=== PATIENT | male | born 1975 | race American Indian/Alaskan Native ===

== ENCOUNTER 2016-12-05 03:09 | Inpatient (IN) | payer MEDICAID ==
[2016-12-05 04:16] LABS: Basophils % (Auto) 0.4 % (0.0-1.8); Eosinophils % (Auto) 0.1 % (0.0-4.3); Hematocrit 48.4 % (35.5-45.6); Hemoglobin 15.8 gm/dl (11.8-15.2); Mean Corpuscular HGB Conc 33 % (32-34); Mean Corpuscular Hemoglobin 28 pg (28-32); Mean Corpuscular Volume 86 fl (84-94); Platelet Count 187 K/mm3 (140-440); Red Blood Count 5.63 M/mm3 (3.65-5.03); Red Cell Distribution Width 15.9 % (13.2-15.2)
[2016-12-05] MEDS ORDERED: DILAUDID IV ONE (04:24)
[2016-12-05] MEDS ORDERED: NACL 0.9% 1000 ML 1,000 ML IV ONE (04:24)
[2016-12-05 04:27] LABS: INR 0.98 (0.87-1.13)
--- NOTE | 2016-12-05 04:36 | Emergency Department Report ---
Blank Doc - Documentation Documentation: MSE note: 40-year-old male with a past medical history of PE/DVT status post open thoracic surgery to remove clots (2014), currently on a Eliquis times one year presents to the hospital complains of ongoing intermittent chest pain and cramps to bilateral legs times one day. This is patient's first visit. Pt typically is evaluated at evaluated at [facility]. Pt ran out of Roxicodone and fentanyl 6 days ago. Pt also reports stents in his bilateral legs and carotids (I'm assuming arterial?). MSE exam: General: No distress secondary to leg pain Respiratory exam: Clear to auscultation bilateral Cardiovascular: Normal rate and rhythm, normal heart sounds Abdomen: Soft, nondistended, and nontender, with normal bowel sounds, no rebound, or guarding Extremity: Normal inspection, no edema, generalized tenderness to palpation to entire leg down to feet. 2+ DP pulses equal bilaterally, no leg asymmetry Neurologic: Alert, oriented x3 Assessment/Plan: Chest pain appears to be chronic. Patient is compliant with Eliquis. cbc, bmp , Cardiac enzymes, d-dimer and coags ordered and pending. CXR reviewed, 20 g in AC. EKG No stemi, nsr 80 Leg pain is new onset. Normal distal pulses. Electrolytes pending. Ck pending , given hx of noncomplance and dvt , bilateral doppler ordered Dilaudid 0.5 mg and 1 L normal saline ordered. Patient's systolic pressure in the high 90s/low 100s. Additional pain medicine can be ordered if blood pressure is stable Possible chronic pain given the patient has been prescribed Roxicodone and fentanyl patch Medical medical records requested for [facility] since patient is overall a poor historian and there are no previous records here for review. Records obtained from [facility]: Patient also has HIV which patient did not mention. 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 Had a PE in 08/2014. Was hospitalized 5 months from 01/2015-07/2015 with acute on chronic hypoxemic respiratory failure and received a pulmonary artery endarterectomy at [place] after which he no longer requiring oxygen. In 02/2016 patient presented to ED with worsening shortness of breath and was found to have a new PE. Patient was noncompliant with Coumadin and switch to Eliquis. On 2015 patient presents with worsening left extremity and abdominal pain and was found to have an extensive clot above the IVC filter extending to the bilateral iliac veins. On 03/27/2016 patient underwent thrombectomy,venoplasty, and SVC stent, extending into the common femorals after which he was started on Plavix. Patient was discharged on Eliquis. Patient stopped Eliquis on 05/13/2016 for unclear reasons and then had worsening right inner thigh pain. Patient presented to the ER with worsening pain and unable to ambulate. CT abdomen and pelvis IV contrast on 06/04/2016: Bilateral vascular stents extending from the common iliac veins into the bilateral femoral veins are stable. Infrarenal IVC and stable position. Evaluation for thrombus with suboptimal due to contrast bolus. However, increased filling defects were noticed within the venous stents likely indicating progression of thrombus. Right leg Doppler study 10/28/2016: Non-occlusive chronic or recurrent DVT thrombus of the right lower femoral vein and right popliteal vein with improved clot burden (copy of records will be added to chart)
[2016-12-05] MEDS ORDERED: ZOFRAN IV ONE (04:37)
[2016-12-05 04:44] LABS: Creatine Kinase MB 3.8 ng/mL (0.0-4.0)
[2016-12-05 04:49] LABS: Anion Gap 25 mmol/L; BUN/Creatinine Ratio 18.57; Blood Urea Nitrogen 26 mg/dL (9-20); Calcium 10.5 mg/dL (8.4-10.2); Carbon Dioxide 26 mmol/L (22-30); Chloride 93.4 mmol/L (98-107); Creatine Kinase 1131 units/L (55-170); Glucose 102 mg/dL (75-100); Potassium 4.1 mmol/L (3.6-5.0); Sodium 140 mmol/L (137-145)
[2016-12-05] MEDS ORDERED: TORADOL ONE (07:19)
[2016-12-05] MEDS ORDERED: ZOFRAN ONE (07:19)
--- NOTE | 2016-12-05 08:11 | Cat Scan Report ---
CTA CHEST: INDICATION: Chest pain, shortness of breath. COMPARISON: None similar. FINDINGS: Chest CTA performed following intravenous administration of 100 cc of Omnipaque 350. Rotational MIP's also obtained. Normal heart size. No effusions. Patent central airway. Minimal hilar lymph node prominence, though not size significant. No significant axillary lymphadenopathy. No aortic aneurysm or dissection. Normal thyroid. Mild bibasilar atelectasis, right greater than left. Mild pulmonary arterial hypertension. Right lower lobe pulmonary arterial branch medially completely occluded, axial images 140-175, series 2, amongst others. No other suspicious pulmonary arterial filling defects. Nonspecific distal esophageal wall prominence/thickening, not excluded for gastroesophageal reflux and/or hiatal hernia, amongst others. Slight contrast reflux into the hepatic veins noted. No significant abnormality in the imaged upper abdomen. Sternotomy wires. CONCLUSION: 1. Right lower lobe pulmonary embolism and mild bibasilar atelectasis, as described. 2. Other findings, including pulmonary arterial hypertension and prior sternotomy. Please correlate. I phoned the above results to Dr. Bettencourt in the ER, 8 AM, 12/05/2016. Thank you for the opportunity to participate in this patient's care.
--- NOTE | 2016-12-05 08:13 | XRay Report ---
PORTABLE CHEST INDICATION: Midsternal chest pain and bilateral leg pain. History of PE. COMPARISON: None similar at this institution. FINDINGS: Portable, frontal chest radiograph demonstrates normal cardiomediastinal silhouette and slightly crowded lung markings centrally and inferiorly. No focal consolidation, pleural effusions or CHF. Sternotomy wires. EKG leads. CONCLUSION: No significant acute chest process with prior sternotomy noted, as described. Thank you for the opportunity to participate in this patient's care.
--- NOTE | 2016-12-05 08:17 | Emergency Department Report ---
HPI - General Chief Complaint: Chest Pain Time Seen by Provider: 12/05/16 04:16 - HPI HPI: CHEST PAIN, RIGHT SIDED, X 1 DAY. PATIENT WITH H/O PE, DVT, GETS MOST OF HIS CARE AT [facility], HE ASKED TO BE TAKEN THERE BUT EMS BROUGHT HIM HERE BECAUSE WE WERE THE CLOSEST HOS[facility] AND HE WAS HAVING CHEST PAIN. PATIENT STATES PAIN IS 10/10, RIGHT SIDED, WITH SOB. PATIENT DENIES ANY FEVER, CHILLS. PAIN DOESN'T RADIATE. PATIENT DENIES ANY ALLEVIATING OR EXACERBATING FACTORS. ED Past Medical Hx - Past Medical History Previous Medical History?: Yes Additional medical history: PE - Surgical History Past Surgical History?: Yes Additional Surgical History: Blood clots removed. - Family History Family history: hypertension - Social History Smoking Status: Former Smoker Substance Use Type: None - Medications Home Medications: Home Medications Medication Instructions Recorded Confirmed Last Taken Type Apixaban [Eliquis] 5 mg PO BID 12/05/16 12/05/16 Unknown History Furosemide [Lasix TAB] 10 mg PO QDAY 12/05/16 12/05/16 Unknown History Oxycodone HCl [Roxicodone TAB] 15 mg PO Q6H PRN 12/05/16 12/05/16 Unknown History Torsemide [Demadex] 10 mg PO QDAY 12/05/16 12/05/16 Unknown History ED Review of Systems ROS: Stated complaint: CHEST/LEG PAIN Other details as noted in HPI Comment: All other systems reviewed and negative Cardiovascular: chest pain Musculoskeletal: myalgia Physical Exam - Physical Exam Vital Signs: Vital Signs 12/05/16 12/05/16 12/05/16 03:16 03:29 03:30 Temperature 97.9 F Pulse Rate 86 88 Respiratory 15 15 13 Rate Blood Pressure 102/55 Blood Pressure 90/44 [Right] O2 Sat by Pulse 100 100 97 Oximetry 12/05/16 12/05/16 12/05/16 04:00 04:30 05:00 Temperature Pulse Rate 83 76 72 Respiratory 15 12 13 Rate Blood Pressure 99/67 93/64 107/70 Blood Pressure [Right] O2 Sat by Pulse 100 Oximetry 12/05/16 12/05/16 12/05/16 05:09 05:30 06:00 Temperature Pulse Rate 78 72 Respiratory 14 12 Rate Blood Pressure 110/66 90/58 Blood Pressure [Right] O2 Sat by Pulse 99 98 Oximetry 12/05/16 12/05/16 06:30 07:00 Temperature Pulse Rate 81 81 Respiratory 13 Rate Blood Pressure 109/72 113/70 Blood Pressure [Right] O2 Sat by Pulse 99 100 Oximetry Physical Exam: gen: alert and oriented x3, Tearful heent: perrla, eomi cv: rrr, nl s1, s2 lungs: cta bila abd: s,nt,nd, pos bs ext: no edema gu: pt refused neuro: no deficits psych: ANXIOUS skin: normal turgor ED Course Vital Signs 12/05/16 12/05/16 12/05/16 03:16 03:29 03:30 Temperature 97.9 F Pulse Rate 86 88 Respiratory 15 15 13 Rate Blood Pressure 102/55 Blood Pressure 90/44 [Right] O2 Sat by Pulse 100 100 97 Oximetry 12/05/16 12/05/16 12/05/16 04:00 04:30 05:00 Temperature Pulse Rate 83 76 72 Respiratory 15 12 13 Rate Blood Pressure 99/67 93/64 107/70 Blood Pressure [Right] O2 Sat by Pulse 100 Oximetry 12/05/16 12/05/16 12/05/16 05:09 05:30 06:00 Temperature Pulse Rate 78 72 Respiratory 14 12 Rate Blood Pressure 110/66 90/58 Blood Pressure [Right] O2 Sat by Pulse 99 98 Oximetry 12/05/16 12/05/16 06:30 07:00 Temperature Pulse Rate 81 81 Respiratory 13 Rate Blood Pressure 109/72 113/70 Blood Pressure [Right] O2 Sat by Pulse 99 100 Oximetry ED Medical Decision Making - Lab Data Result diagrams: 12/06/16 05:34 12/06/16 05:34 Critical care attestation.: If time is entered above; I have spent that time in minutes in the direct care of this critically ill patient, excluding procedure time. ED Disposition Clinical Impression: Pulmonary embolus, right Disposition: [id number] OP ADMIT IP TO THIS HOSP Is pt being admited?: Yes Does the pt Need Aspirin: No Condition: Good
--- NOTE | 2016-12-05 08:30 | Admit Criteria Form ---
Admission Criteria Documentation: PULMONARY EMBOLISM Clinical Indications for Admission to Inpatient Care (Place 'X' for any and all applicable criteria): Admission is indicated for 1 or more of the following(1)(2)(3)(4)(5)(6)(7) [ ]I. Hypoxemia [X ]II. Vital sign abnormality (8) indicated by ALL of the following: [ X]a) Vital sign findings not as expected for chronic patient condition or baseline (eg, intentionally low, blood pressure in heart failure) [X ]b) Vital sign abnormality as indicated by 1 or more of the following [ ]l) Tachycardia [X ]ll) Hypotension [ ]lll) Orthostatic vital sign changes [ ]III. History of cancer [ ]IV. History of chronic cardiopulmonary disease (eg. CHF, coronary artery disease, COPD, cor pulmonale) [ ]V. Cardiac arrhythmias of intermediate concern [ ]. Right ventricular dysfunction (eg, by echocardiogram) [ ]VII. Positive cardiac biomarker (eg, troponin T or I > 0.1 ng/mL (mcg/L), highly sensitive troponin I assay greater than 0.014 ng/mL (mcg/L), BNP or NT proBNP > assay threshold)(8 )(10)(11) [ ]VIII. Need for IV narcotics (eg, to treat dyspnea) 1 or more of following: [ ]a) Bleeding before anticoagulation [ ]b) Recent surgery (eg, within 3 months) that increases risk of catastrophic bleeding (eg, spinal surgery, intracranial surgery, cardiovascular surgery) [ ]c) Recent GI bleeding (eg, within 3 months) or known increased risk of GI bleed (eg,esophageal varices, current ulcer) [ ]d) Recent (eg, within 3 months) ischemic stroke [ ]e) History of intracranial bleeding (eg, hemorrhagic stroke) [ ]f) History of active bleeding when anticoagulated [ ]g) Active substance abuse [ ]h) Other risk factor thought to place patient at high risk such that ability to rapidly reverse reversal agent) [ ]X. Documented extensive thrombosis (eg, clot in vena cava or above iliofemoral bifurcation) [ ]Xl. Thrombolysis (eg, catheter-directed) or pharmacomechanical thrombectomy needed[A][B](8) [ ]XIl. Vena cava filter placement needed (eg, unable to anticoagulate)[C](8) [ ]Xlll. with delivery planned (eg, 37 or more weeks' gestation)(14 ) [ ]XlV. Limb-threatening thrombosis (eg, phlegmasia cerula dolens) [ ]XV. Embolism while on anti-coagulation [ ]XVl. Contraindication to outpatient use of medication with rapid anticoagulation effect as indicated by ALL of the following: [ ] a) Contraindication to use of fhs-rmkmskmvf-shsytc heparin[E][F ] indicated by 1 or more of the following(16): [ ] i) Documented current or history of heparin-induced thrombocytopenia(15) [ ] ii) Severe thrombocytopenia (eg, platelet count less than 50 ,000/mm3 (50 x109/L)) [ ] iii) Allergy to heparin, lje-icaggrfbb-mgjwuh heparin, or product component [ ] iv) Renal failure (creatinine clearance less than 30 mL/min/ 1.73m2 (0.50 mL/sec/1.73m2) or on dialysis) [ ] v) Need for neuraxial anesthesia or spinal puncture anticipated [ ] vi) Inability to manage self-injection (eg. By patient, caregiver, or visiting nurse) [ ] b) Contraindication to use of fondaparinux indicated by 1 or more of the following: [ ] i) Documented current or history of heparin-induced thrombocytopenia (15) [ ] ii) Severe thrombocytopenia (eg, platelet count less than 50 ,000/mm3 (50 x109/L)) [ ] iii) Allergy to fondaparinux, related drugs, or product components [ ] iv) Renal failure (creatinine clearance less than 30 mL/min/ 1.73m2 (0.50 mL/sec/1.73m2) or on dialysis) [ ] v) [ ] vi) Liver disease with coagulopathy (eg, elevated INR due to liver disease) [ ] vii) Mechanical heart valve [ ] viii) Need for neuraxial anesthesia or spinal puncture anticipated [ ] xi) Inability to manage self-injection (eg, by patient, caregiver, or visiting nurse) [ ] c) Contraindication to use of an oral direct thrombin inhibitor (eg, dabigatran) or an oral coagulation factor Xa inhibitor (eg, rivaroxaban, apixaban)[E][F] indicated by 1 or more of the following(17)(18): [ ] i) Severe thrombocytopenia (eg, platelet count less than 50, 000/mm3 (50 x109/L)) [ ] ii) Allergy to medication or product components x109/L)) [ ] iii) Renal failure (creatinine clearance less than 30 mL/min /1.73m2 (0.50 mL/sec/1.73m2) or on dialysis) [ ] iv) [ ] v) Liver disease with coagulopathy (eg, elevated INR due to liver disease) [ ] vi) Mechanical heart valve [ ] vii) Need for neuraxial anesthesia or spinal puncture anticipated [ ]XVll. Inpatient admission required rather than observation care (Also use Pulmonary Embolism: Observation Care guideline as appropriate) because of ANY ONE of the following: [ ] a) Significant autoimmune (thrombocytopenia) or coagulopathic reaction occurs in response to anticoagulation [ ] b) Respiratory symptoms (eg, tachypnea, dyspnea) that are severe or persistent [ ] c) Other condition, treatment, or monitoring requiring inpatient admission The original [employer] content created by [employer] has been revised. The portions of the content which have been revised are identified through the use of italic text or in bold, and [facility] has neither reviewed nor approved the modified material. All other unmodified content is copyright [employer]. Please see references footnoted in the original [email or web address] edition 2017 Admission Criteria Met: Yes
--- NOTE | 2016-12-05 08:55 | History and Physical Report ---
History of Present Illness Date of examination: 12/05/16 Date of admission: 12/05/2016 Chief complaint: Bilateral leg pain History of present illness: The patient is a 40 years old -Beninese male with history of multiple PE/ DVT status post open thoracic surgery to remove clots (2014), currently on a Eliquis times one year presents to the hospital complains of ongoing intermittent chest pain and cramps to bilateral legs times one day . The pain began morning at approx 4:00 am while the patient was walking to the bathroom. The pain was described as aching and had a gradual onset. The patient had difficulty sleeping because of the pain. The pain continued to gradually increase in severity to an 10/10 today. The pain was exacerbated with walking or standing and was not significantly relieved with Percocet that the patient had by prescription. Patient also complain intermittent right side chest pain since yesterday. The right-sided pain is located midway down to his ribcage, below the axilla. This pain is sharp, about 9/10 in severity, and worsens with movement and cough. Pressing on the chest does not recreate the pain. The patient reports some chills and mild SOB, but denies fever, N/V, cough , chest pain, abdominal pain or recent trauma to the legs. Past History Past Medical History: DVT, HIV/AIDS, pulmonary embolism Past Surgical History: Other (Bilateral iliac IVC filter placement and open thoracic surgery to remove clots ) Social history: single, Lives alone. denies: smoking, alcohol abuse Family history: CAD, hypertension Medications and Allergies Allergies Allergy/AdvReac Type Severity Reaction Status Date / Time ibuprofen [From Motrin] Allergy Hives Verified 12/05/16 03:34 Home Medications Medication Instructions Recorded Confirmed Last Taken Type Apixaban [Eliquis] 5 mg PO BID 12/05/16 12/05/16 Unknown History Furosemide [Lasix] 10 mg PO QDAY 12/05/16 12/05/16 Unknown History Oxycodone HCl [Roxicodone TAB] 15 mg PO Q6H PRN 12/05/16 12/05/16 Unknown History Torsemide [Demadex] 10 mg PO QDAY 12/05/16 12/05/16 Unknown History Active Meds: Active Medications Acetaminophen (Tylenol) 650 mg PO Q4H PRN PRN Reason: Pain MILD(1-3)/Fever >100.5/GROSSMAN Apixaban (Eliquis) 10 mg PO Q12HR SAPNA PRN Reason: Protocol Bisacodyl (Dulcolax) 10 mg MD QDAY PRN PRN Reason: Constipation unrelieved by MOM Morphine Sulfate (Morphine) 1 mg IV Q4H PRN PRN Reason: Pain, Moderate (4-6) Ondansetron HCl (Zofran) 4 mg IM Q4H PRN PRN Reason: Nausea And Vomiting Review of Systems Constitutional: no weight gain, no fever, no chills Ears, nose, mouth and throat: no ear discharge, no tinnitis, no decreased hearing, no nose pain Cardiovascular: no palpitations, no rapid/irregular heart beat, no edema Respiratory: no cough, no cough with sputum, no excessive sputum Gastrointestinal: no abdominal pain, no nausea, no vomiting, no diarrhea Genitourinary Male: no hematuria, no flank pain, no discharge, no urinary frequency, no urinary hesitancy Rectal: no pain, no incontinence, no bleeding Musculoskeletal: no neck stiffness, no neck pain, no shooting arm pain, no redness of joints Integumentary: no rash, no pruritis, no redness, no sores, no wounds, no jaundice Neurological: no transient paralysis, no paralysis, no weakness, no numbness, no tingling Psychiatric: no memory loss, no change in sleep habits, no sleep disturbances, no insomnia, no hypersomnia Endocrine: no cold intolerance, no heat intolerance, no polyphagia, no excessive thirst, no polydipsia, no polyuria Hematologic/Lymphatic: no easy bruising, no easy bleeding Allergic/Immunologic: no urticaria, no allergic rhinitis Exam - Constitutional Vitals: Temp Pulse Resp BP Pulse Ox 97.9 F 81 13 113/70 100 12/05/16 03:16 12/05/16 07:00 12/05/16 07:00 12/05/16 07:00 12/05/16 07:00 General appearance: Present: no acute distress - EENT Eyes: Present: PERRL ENT: hearing intact - Neck Neck: Present: supple - Respiratory Respiratory effort: normal Respiratory: bilateral: CTA - Cardiovascular Heart rate: 81 Rhythm: regular Heart Sounds: Present: S1 & S2 - Extremities Extremities: no ischemia Peripheral Pulses: within normal limits - Abdominal General gastrointestinal: Present: soft, non-tender Male genitourinary: Present: deferred - Rectal Rectal Exam: deferred - Integumentary Integumentary: Present: clear, warm, dry - Musculoskeletal Musculoskeletal: strength equal bilaterally - Psychiatric Psychiatric: appropriate mood/affect - Neurologic Neurologic: CNII-XII intact - Allied Health Allied health notes reviewed: nursing Results - Labs CBC & Chem 7: 12/05/16 03:39 12/05/16 03:39 Labs: Laboratory Last Values WBC 10.0 K/mm3 (4.5-11.0) 12/05/16 03:39 RBC 5.63 M/mm3 (3.65-5.03) H 12/05/16 03:39 Hgb 15.8 gm/dl (11.8-15.2) H 12/05/16 03:39 Hct 48.4 % (35.5-45.6) H 12/05/16 03:39 MCV 86 fl (84-94) 12/05/16 03:39 MCH 28 pg (28-32) 12/05/16 03:39 MCHC 33 % (32-34) 12/05/16 03:39 RDW 15.9 % (13.2-15.2) H 12/05/16 03:39 Plt Count 187 K/mm3 (140-440) 12/05/16 03:39 Lymph % (Auto) 14.9 % (13.4-35.0) 12/05/16 03:39 [place] % (Auto) 4.9 % (0.0-7.3) 12/05/16 03:39 Eos % (Auto) 0.1 % (0.0-4.3) 12/05/16 03:39 Baso % (Auto) 0.4 % (0.0-1.8) 12/05/16 03:39 Lymph # 1.5 K/mm3 (1.2-5.4) 12/05/16 03:39 [place] # 0.5 K/mm3 (0.0-0.8) 12/05/16 03:39 Eos # 0.0 K/mm3 (0.0-0.4) 12/05/16 03:39 Baso # 0.0 K/mm3 (0.0-0.1) 12/05/16 03:39 Seg Neutrophils % 79.7 % (40.0-70.0) H 12/05/16 03:39 Seg Neutrophils # 8.0 K/mm3 (1.8-7.7) H 12/05/16 03:39 PT 13.5 Sec. (12.2-14.9) 12/05/16 03:39 INR 0.98 (0.87-1.13) 12/05/16 03:39 APTT 31.0 Sec. (24.2-36.6) 12/05/16 03:39 D-Dimer 215.78 ng/mlDDU (0-234) 12/05/16 03:39 Sodium 140 mmol/L (137-145) 12/05/16 03:39 Potassium 4.1 mmol/L (3.6-5.0) 12/05/16 03:39 Chloride 93.4 mmol/L (98-107) L 12/05/16 03:39 Carbon Dioxide 26 mmol/L (22-30) 12/05/16 03:39 Anion Gap 25 mmol/L 12/05/16 03:39 BUN 26 mg/dL (9-20) H 12/05/16 03:39 Creatinine 1.4 mg/dL (0.8-1.5) 12/05/16 03:39 Estimated GFR > 60 ml/min 12/05/16 03:39 BUN/Creatinine Ratio 18.57 % 12/05/16 03:39 Glucose 102 mg/dL (75-100) H 12/05/16 03:39 Calcium 10.5 mg/dL (8.4-10.2) H 12/05/16 03:39 Magnesium 2.00 mg/dL (1.7-2.3) 12/05/16 03:39 Total Creatine Kinase 1131 units/L (55-170) H 12/05/16 03:39 CK-MB (CK-2) 3.8 ng/mL (0.0-4.0) 12/05/16 03:39 CK-MB (CK-2) Rel Index 0.3 (0-4) 12/05/16 03:39 Troponin T < 0.010 ng/mL (0.00-0.029) 12/05/16 06:41 - Imaging and Cardiology Chest x-ray: image reviewed (sternotomy ) CT scan - chest: image reviewed (Righ lower lobe pulmonary embolism and mild bibasilar atelectasis as described. pulmonary arterial hypertension and prior sternotomy ) Assessment and Plan Assessment and plan: ASSESSMENT/PLAN Right lower lobe Pulmonary embolism CTA shows Righ lower lobe pulmonary embolism Resume Apixaban with increased in dose Supportive care Acute Bilateral Popliteal vein DVT (deep venous thrombosis) Doppler VL venous LE revealed acute non-occlusive bilateral Popliteal DVT We will get CT of the abdomen/pelvis to better delineate extent Nothing by mouth after midnight for possible intervention in AM Morphine breakthrough pain Supportive care HIV Plan non-compliant with ARV but appears to be senior living non-progresses last CD4 734 in 03/2016 Dehydration Hold Lasix and Torsemide for now and we will resume diuretics after patient improved. noncompliance Patient non-compliant with Apixaban. Counseling done Chronic thromboembolic pulmonary hypertension Currently off all medications S/P pulmonary artery thrombectomy at [place] in 07/2015 DVT prophylaxis On Elquis Advance Directives: Yes (Full code) VTE prophylaxis?: Chemical Contraindication Mechanical VTE Prophylaxis: Treatment Not Indicated Plan of care discussed with patient/family: Yes
[2016-12-05] MEDS ORDERED: TYLENOL PO PRN (09:00)
[2016-12-05] MEDS ORDERED: ZOFRAN IM PRN (09:00)
[2016-12-05] MEDS ORDERED: DULCOLAX PR PRN (10:00)
[2016-12-05] MEDS: ELIQUIS PO SCH ×2 (10:06→22:34)
[2016-12-05] MEDS: MORPHINE IV PRN ×2 (18:04→23:50)
--- NOTE | 2016-12-05 19:17 | Event Note ---
Date: 12/05/16 Patient seen and evaluated. Agree with [facility]OOK's note following adjustments: 40 yo AAM with HIV, previous PE/DVT LE likely noncompliant with Coumadin, switched to Eliquis by his ID physician, Dr. Flores at [facility], presented for chest pain and bilateral leg cramps; found to have bilateral DVTs and PE; restarted on [id number] mg twice a day for 7 days, then 5 mg twice a day; counseled regarding importance of adherence to treatment and follow-up appointments. Getting IV fluids for rhabdomyolysis.
[2016-12-06 06:09] LABS: Basophils % (Auto) 0.6 % (0.0-1.8); Hematocrit 48.3 % (35.5-45.6); Hemoglobin 15.1 gm/dl (11.8-15.2); Mean Corpuscular HGB Conc 31 % (32-34); Mean Corpuscular Hemoglobin 28 pg (28-32); Mean Corpuscular Volume 88 fl (84-94); Platelet Count 185 K/mm3 (140-440); Red Cell Distribution Width 15.9 % (13.2-15.2); White Blood Count 4.2 K/mm3 (4.5-11.0)
[2016-12-06 06:30] LABS: Anion Gap 16 mmol/L; BUN/Creatinine Ratio 16.25; Blood Urea Nitrogen 13 mg/dL (9-20); Calcium 8.9 mg/dL (8.4-10.2); Carbon Dioxide 27 mmol/L (22-30); Chloride 96.8 mmol/L (98-107); Creatine Kinase 1356 units/L (55-170); Glucose 95 mg/dL (75-100); Potassium 3.6 mmol/L (3.6-5.0); Sodium 136 mmol/L (137-145)
[2016-12-06] MEDS: ELIQUIS PO SCH ×2 (09:36→21:01)
[2016-12-06] MEDS ORDERED: DEMADEX PO SCH (10:00)
[2016-12-06] MEDS ORDERED: LASIX PO SCH (10:00)
--- NOTE | 2016-12-06 11:14 | Vascular Lab Report ---
LOWER EXTREMITY VENOUS DUPLEX: REASON FOR EXAM: Pain of the lower extremities. COMMENTS ON THE RIGHT: Deep venous thrombosis is noted in the right popliteal and femoral veins. The remaining veins visualized are freely compressible without evidence of internal echogenicity. Spontaneous and phasic flow is present proximally. COMMENTS ON THE LEFT: Deep venous thrombosis is noted in the popliteal vein. The remaining veins visualized are freely compressible without evidence of internal echogenicity. Spontaneous and phasic flow is present proximally. IMPRESSION: Bilateral deep venous thrombosis
[2016-12-06] MEDS ORDERED: PNEUMOVAX 23 IM ONE (12:00)
[2016-12-06] MEDS ORDERED: Fluarix Quad 2017-2018(36 MOS+) IM ONE (12:00)
[2016-12-06] MEDS: MORPHINE IV PRN ×2 (12:57→20:29)
--- NOTE | 2016-12-06 20:34 | Progress Note ---
Assessment and Plan Assessment and plan: 40 yo AAM with HIV, previous PE/DVT LE likely noncompliant with Coumadin, switched to Eliquis by his ID physician, Dr. Flores at [place], presented for chest pain and bilateral leg cramps 1. Pulmonary embolism - CTA chest revealed PE and Doppler LE showed bilateral acute DVTs; possible secondary to noncompliance; start/restart Rob was at 10 mg twice a day for 7 days, then 5 mg twice a day; extensively counseled regarding importance of adherence to treatment and follow-up appointments 2. Bilateral LE DVT - see above discussion 3. Acute nontraumatic rhabdomyolysis - IV fluids; trend CPK 4. HIV - not on ARV, but last CD4 >500 History Interval history: still c/o bilat leg muscle cramps Hospitalist Physical - Constitutional Vitals: Temp Pulse Resp BP Pulse Ox 97.6 F 88 18 103/95 97 12/06/16 16:00 12/06/16 16:00 12/06/16 20:29 12/06/16 16:00 12/06/16 16:00 General appearance: Present: no acute distress, cachectic - EENT Eyes: Present: PERRL, EOM intact. Absent: scleral icterus, conjunctival injection - Neck Neck: Present: supple, normal ROM. Absent: masses or JVD - Respiratory Respiratory effort: normal Respiratory: bilateral: CTA, negative: rhonchi, wheezing - Cardiovascular Rhythm: regular Heart Sounds: Present: S1 & S2. Absent: systolic murmur - Extremities Extremities: no ischemia - Abdominal General gastrointestinal: soft, non-tender, non-distended, normal bowel sounds - Psychiatric Psychiatric: no intact judgment & insight, cooperative - Neurologic Neurologic: no focal deficits Results - Labs CBC & Chem 7: 12/06/16 05:34 12/06/16 05:34 Labs: Laboratory Last Values WBC 4.2 K/mm3 (4.5-11.0) L 12/06/16 05:34 RBC 5.50 M/mm3 (3.65-5.03) H 12/06/16 05:34 Hgb 15.1 gm/dl (11.8-15.2) 12/06/16 05:34 Hct 48.3 % (35.5-45.6) H 12/06/16 05:34 MCV 88 fl (84-94) 12/06/16 05:34 MCH 28 pg (28-32) 12/06/16 05:34 MCHC 31 % (32-34) L 12/06/16 05:34 RDW 15.9 % (13.2-15.2) H 12/06/16 05:34 Plt Count 185 K/mm3 (140-440) 12/06/16 05:34 Lymph % (Auto) 52.5 % (13.4-35.0) H 12/06/16 05:34 [place] % (Auto) 8.8 % (0.0-7.3) H 12/06/16 05:34 Eos % (Auto) 2.0 % (0.0-4.3) 12/06/16 05:34 Baso % (Auto) 0.6 % (0.0-1.8) 12/06/16 05:34 Lymph # 2.2 K/mm3 (1.2-5.4) 12/06/16 05:34 [place] # 0.4 K/mm3 (0.0-0.8) 12/06/16 05:34 Eos # 0.1 K/mm3 (0.0-0.4) 12/06/16 05:34 Baso # 0.0 K/mm3 (0.0-0.1) 12/06/16 05:34 Seg Neutrophils % 36.1 % (40.0-70.0) L 12/06/16 05:34 Seg Neutrophils # 1.5 K/mm3 (1.8-7.7) L 12/06/16 05:34 PT 13.5 Sec. (12.2-14.9) 12/05/16 03:39 INR 0.98 (0.87-1.13) 12/05/16 03:39 APTT 31.0 Sec. (24.2-36.6) 12/05/16 03:39 D-Dimer 215.78 ng/mlDDU (0-234) 12/05/16 03:39 Sodium 136 mmol/L (137-145) L 12/06/16 05:34 Potassium 3.6 mmol/L (3.6-5.0) 12/06/16 05:34 Chloride 96.8 mmol/L (98-107) L 12/06/16 05:34 Carbon Dioxide 27 mmol/L (22-30) 12/06/16 05:34 Anion Gap 16 mmol/L 12/06/16 05:34 BUN 13 mg/dL (9-20) 12/06/16 05:34 Creatinine 0.8 mg/dL (0.8-1.5) 12/06/16 05:34 Estimated GFR > 60 ml/min 12/06/16 05:34 BUN/Creatinine Ratio 16.25 % 12/06/16 05:34 Glucose 95 mg/dL (75-100) 12/06/16 05:34 Calcium 8.9 mg/dL (8.4-10.2) D 12/06/16 05:34 Magnesium 2.00 mg/dL (1.7-2.3) 12/05/16 03:39 Total Creatine Kinase 1356 units/L (55-170) H 12/06/16 05:34 CK-MB (CK-2) 3.8 ng/mL (0.0-4.0) 12/05/16 03:39 CK-MB (CK-2) Rel Index 0.3 (0-4) 12/05/16 03:39 Troponin T < 0.010 ng/mL (0.00-0.029) 12/05/16 09:58
[2016-12-06] MEDS: BENADRYL IV PRN (20:49)
[2016-12-06] MEDS: NACL 0.9% 1000 ML 1,000 ML IV SCH (20:54)
[2016-12-07] MEDS: ELIQUIS PO SCH ×2 (09:52→22:00)
[2016-12-07] MEDS: NACL 0.9% 1000 ML 1,000 ML IV SCH ×2 (09:52→22:01)
[2016-12-07] MEDS ORDERED: NACL 0.9% 1000 ML 1,000 ML IV SCH (12:00)
--- NOTE | 2016-12-07 21:44 | Progress Note ---
Assessment and Plan Assessment and plan: 40 yo AAM with HIV, previous PE/DVT LE likely noncompliant with Coumadin, switched to Eliquis by his ID physician, Dr. Flores at [place], presented for chest pain and bilateral leg cramps 1. Pulmonary embolism - CTA chest revealed PE and Doppler LE showed bilateral acute DVTs; possible secondary to noncompliance; start/restart Rob was at 10 mg twice a day for 7 days, then 5 mg twice a day; extensively counseled regarding importance of adherence to treatment and follow-up appointments 2. Bilateral LE DVT - see above discussion 3. Acute nontraumatic rhabdomyolysis - IV fluids; CPK trending down, recheck in a.m. 4. HIV - not on ARV, but last CD4 >500 5. Cachexia - likely secondary to HIV; diet supplementation History Interval history: still c/o bilat leg muscle cramps, but slightly better Hospitalist Physical - Constitutional Vitals: Temp Pulse Resp BP Pulse Ox 98.7 F 84 16 111/68 97 12/07/16 20:30 12/07/16 20:30 12/07/16 20:30 12/07/16 20:30 12/07/16 20:30 General appearance: Present: no acute distress, cachectic - EENT Eyes: Present: PERRL, EOM intact. Absent: scleral icterus, conjunctival injection - Neck Neck: Present: supple, normal ROM. Absent: masses or JVD - Respiratory Respiratory effort: normal Respiratory: bilateral: CTA, negative: rhonchi, wheezing - Cardiovascular Rhythm: regular Heart Sounds: Present: S1 & S2. Absent: systolic murmur - Extremities Extremities: no ischemia - Abdominal General gastrointestinal: soft, non-tender, non-distended, normal bowel sounds - Psychiatric Psychiatric: cooperative - Neurologic Neurologic: CNII-XII intact, no focal deficits Results - Labs CBC & Chem 7: 12/06/16 05:34 12/06/16 05:34 Labs: Laboratory Last Values WBC 4.2 K/mm3 (4.5-11.0) L 12/06/16 05:34 RBC 5.50 M/mm3 (3.65-5.03) H 12/06/16 05:34 Hgb 15.1 gm/dl (11.8-15.2) 12/06/16 05:34 Hct 48.3 % (35.5-45.6) H 12/06/16 05:34 MCV 88 fl (84-94) 12/06/16 05:34 MCH 28 pg (28-32) 12/06/16 05:34 MCHC 31 % (32-34) L 12/06/16 05:34 RDW 15.9 % (13.2-15.2) H 12/06/16 05:34 Plt Count 185 K/mm3 (140-440) 12/06/16 05:34 Lymph % (Auto) 52.5 % (13.4-35.0) H 12/06/16 05:34 [place] % (Auto) 8.8 % (0.0-7.3) H 12/06/16 05:34 Eos % (Auto) 2.0 % (0.0-4.3) 12/06/16 05:34 Baso % (Auto) 0.6 % (0.0-1.8) 12/06/16 05:34 Lymph # 2.2 K/mm3 (1.2-5.4) 12/06/16 05:34 [place] # 0.4 K/mm3 (0.0-0.8) 12/06/16 05:34 Eos # 0.1 K/mm3 (0.0-0.4) 12/06/16 05:34 Baso # 0.0 K/mm3 (0.0-0.1) 12/06/16 05:34 Seg Neutrophils % 36.1 % (40.0-70.0) L 12/06/16 05:34 Seg Neutrophils # 1.5 K/mm3 (1.8-7.7) L 12/06/16 05:34 PT 13.5 Sec. (12.2-14.9) 12/05/16 03:39 INR 0.98 (0.87-1.13) 12/05/16 03:39 APTT 31.0 Sec. (24.2-36.6) 12/05/16 03:39 D-Dimer 215.78 ng/mlDDU (0-234) 12/05/16 03:39 Sodium 136 mmol/L (137-145) L 12/06/16 05:34 Potassium 3.6 mmol/L (3.6-5.0) 12/06/16 05:34 Chloride 96.8 mmol/L (98-107) L 12/06/16 05:34 Carbon Dioxide 27 mmol/L (22-30) 12/06/16 05:34 Anion Gap 16 mmol/L 12/06/16 05:34 BUN 13 mg/dL (9-20) 12/06/16 05:34 Creatinine 0.8 mg/dL (0.8-1.5) 12/06/16 05:34 Estimated GFR > 60 ml/min 12/06/16 05:34 BUN/Creatinine Ratio 16.25 % 12/06/16 05:34 Glucose 95 mg/dL (75-100) 12/06/16 05:34 Calcium 8.9 mg/dL (8.4-10.2) D 12/06/16 05:34 Magnesium 2.00 mg/dL (1.7-2.3) 12/05/16 03:39 Total Creatine Kinase 502 units/L (55-170) H 12/07/16 05:27 CK-MB (CK-2) 3.8 ng/mL (0.0-4.0) 12/05/16 03:39 CK-MB (CK-2) Rel Index 0.3 (0-4) 12/05/16 03:39 Troponin T < 0.010 ng/mL (0.00-0.029) 12/05/16 09:58
[2016-12-07] MEDS: MORPHINE IV PRN (22:00)
[2016-12-07] MEDS: BENADRYL IV PRN (22:16)
--- NOTE | 2016-12-08 09:42 | Progress Note ---
Assessment and Plan Assessment and plan: 40 yo AAM with HIV, previous PE/DVT LE likely noncompliant with Coumadin, switched to Eliquis by his ID physician, Dr. Flores at [place], presented for chest pain and bilateral leg cramps 1. Pulmonary embolism - CTA chest revealed PE and Doppler LE showed bilateral acute DVTs. Patient states he was compliant with his medications. Continue Eliquis. Consult hematology admissions gate attendant since patient has pulmonary embolism and DVT while on Eliquis. 2. Bilateral LE DVT - Continue Eliquis. History of IVC filter. 3. Acute nontraumatic rhabdomyolysis - IV fluids. Resolving. 4. HIV - not on HAART. Follows with ID physician 5. DVT prophylaxis. On Eliquis. History Interval history: still having chest pain, Still having bilateral leg pains Hospitalist Physical - Physical exam Narrative exam: Gen appearance: Not in acute distress HEENT: normocephalic, atraumatic Neck: supple, no JVD, PAYAL Lungs: Clear to auscultation bilaterally, no crackles or wheezes Heart :S1 and S2 regular, no murmurs, rubs or gallop Abdomen: Soft, Non tender, non distended, bowel sounds present Extremities :no edema, no clubbing or cyanosis Neuro: AAO x 3, no focal neurological signs Psych:normal mood - Constitutional Vitals: Temp Pulse Resp BP Pulse Ox 98.8 F 88 16 118/68 97 12/07/16 23:24 12/07/16 23:24 12/07/16 23:24 12/07/16 23:24 12/07/16 20:30 General appearance: Present: no acute distress, cachectic Results - Labs CBC & Chem 7: 12/06/16 05:34 12/06/16 05:34 Labs: Laboratory Last Values WBC 4.2 K/mm3 (4.5-11.0) L 12/06/16 05:34 RBC 5.50 M/mm3 (3.65-5.03) H 12/06/16 05:34 Hgb 15.1 gm/dl (11.8-15.2) 12/06/16 05:34 Hct 48.3 % (35.5-45.6) H 12/06/16 05:34 MCV 88 fl (84-94) 12/06/16 05:34 MCH 28 pg (28-32) 12/06/16 05:34 MCHC 31 % (32-34) L 12/06/16 05:34 RDW 15.9 % (13.2-15.2) H 12/06/16 05:34 Plt Count 185 K/mm3 (140-440) 12/06/16 05:34 Lymph % (Auto) 52.5 % (13.4-35.0) H 12/06/16 05:34 [place] % (Auto) 8.8 % (0.0-7.3) H 12/06/16 05:34 Eos % (Auto) 2.0 % (0.0-4.3) 12/06/16 05:34 Baso % (Auto) 0.6 % (0.0-1.8) 12/06/16 05:34 Lymph # 2.2 K/mm3 (1.2-5.4) 12/06/16 05:34 [place] # 0.4 K/mm3 (0.0-0.8) 12/06/16 05:34 Eos # 0.1 K/mm3 (0.0-0.4) 12/06/16 05:34 Baso # 0.0 K/mm3 (0.0-0.1) 12/06/16 05:34 Seg Neutrophils % 36.1 % (40.0-70.0) L 12/06/16 05:34 Seg Neutrophils # 1.5 K/mm3 (1.8-7.7) L 12/06/16 05:34 PT 13.5 Sec. (12.2-14.9) 12/05/16 03:39 INR 0.98 (0.87-1.13) 12/05/16 03:39 APTT 31.0 Sec. (24.2-36.6) 12/05/16 03:39 D-Dimer 215.78 ng/mlDDU (0-234) 12/05/16 03:39 Sodium 136 mmol/L (137-145) L 12/06/16 05:34 Potassium 3.6 mmol/L (3.6-5.0) 12/06/16 05:34 Chloride 96.8 mmol/L (98-107) L 12/06/16 05:34 Carbon Dioxide 27 mmol/L (22-30) 12/06/16 05:34 Anion Gap 16 mmol/L 12/06/16 05:34 BUN 13 mg/dL (9-20) 12/06/16 05:34 Creatinine 0.8 mg/dL (0.8-1.5) 12/06/16 05:34 Estimated GFR > 60 ml/min 12/06/16 05:34 BUN/Creatinine Ratio 16.25 % 12/06/16 05:34 Glucose 95 mg/dL (75-100) 12/06/16 05:34 Calcium 8.9 mg/dL (8.4-10.2) D 12/06/16 05:34 Magnesium 2.00 mg/dL (1.7-2.3) 12/05/16 03:39 Total Creatine Kinase 257 units/L (55-170) H 12/08/16 05:51 CK-MB (CK-2) 3.8 ng/mL (0.0-4.0) 12/05/16 03:39 CK-MB (CK-2) Rel Index 0.3 (0-4) 12/05/16 03:39 Troponin T < 0.010 ng/mL (0.00-0.029) 12/05/16 09:58
[2016-12-08] MEDS: ELIQUIS PO SCH ×2 (09:56→22:20)
[2016-12-08] MEDS: BENADRYL IV PRN (09:56)
[2016-12-08] MEDS: MORPHINE IV PRN (09:56)
[2016-12-08] MEDS: NACL 0.9% 1000 ML 1,000 ML IV SCH (10:01)
--- NOTE | 2016-12-08 21:14 | Consultation ---
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 Requesting physician: JONG GAN - History of Present Illness Thank you for this consult, patient seen/examined, record reviewed, case d/w patient. Kindly asked to see this patient for reasons of recurrent DVT/PE while actively on Eloquis. As per his account, he was initially dx with DVT/PE in 2014 , complicated, and required thoracic surgery, the put on coumadin, then xeralto , and finally on Eloquis , which he remained on until this recurrent episode. His sister also have DVT. He had so far received all his tx at [facility] under DR Jeramy Flores whom i will try to contact tomorrow for more information.He already have IVC filter. Will need to check the integrity of the IVC filter. If needed, he may need another thrombo embolectomy if feasible, and absolutely indicated. will contact vascular. Past History Past Medical History: DVT, HIV/AIDS, pulmonary embolism Past Surgical History: Other (Bilateral iliac IVC filter placement and open thoracic surgery to remove clots ) Social history: single, Lives alone. denies: smoking, alcohol abuse Family history: CAD, hypertension, other (DVT in the sister.) Medications and Allergies Allergies Allergy/AdvReac Type Severity Reaction Status Date / Time ibuprofen [From Motrin] Allergy Hives Verified 12/05/16 03:34 Home Medications Medication Instructions Recorded Confirmed Last Taken Type Apixaban [Eliquis] 5 mg PO BID 12/05/16 12/05/16 Unknown History Furosemide [Lasix] 10 mg PO QDAY 12/05/16 12/05/16 Unknown History Oxycodone HCl [Roxicodone TAB] 15 mg PO Q6H PRN 12/05/16 12/05/16 Unknown History Torsemide [Demadex] 10 mg PO QDAY 12/05/16 12/05/16 Unknown History Active Meds: Active Medications Acetaminophen (Tylenol) 650 mg PO Q4H PRN PRN Reason: Pain MILD(1-3)/Fever >100.5/GROSSMAN Apixaban (Eliquis) 10 mg PO Q12HR SAPNA PRN Reason: Protocol Last Admin: 12/08/16 09:56 Dose: 10 mg Bisacodyl (Dulcolax) 10 mg [place] QDAY PRN PRN Reason: Constipation unrelieved by MOM Diphenhydramine HCl (Benadryl) 25 mg IV Q6H PRN PRN Reason: Itching Last Admin: 12/08/16 09:56 Dose: 25 mg Sodium Chloride (Nacl 0.9% 1000 Ml) 1,000 mls @ 75 mls/hr IV DIRECT SAPNA Last Admin: 12/08/16 10:01 Dose: 75 mls/hr Sodium Chloride (Nacl 0.9% 1000 Ml) 1,000 mls @ 75 mls/hr IV DIRECT SAPNA Morphine Sulfate (Morphine) 1 mg IV Q4H PRN PRN Reason: Pain, Moderate (4-6) Last Admin: 12/08/16 09:56 Dose: 1 mg Ondansetron HCl (Zofran) 4 mg IM Q4H PRN PRN Reason: Nausea And Vomiting Review of Systems Constitutional: chronic pain Cardiovascular: chest pain, shortness of breath Respiratory: shortness of breath Exam - Constitutional Vitals: Temp Pulse Resp BP Pulse Ox 98.2 F 78 20 105/66 99 12/08/16 16:31 12/08/16 16:31 12/08/16 16:31 12/08/16 16:31 12/08/16 08:10 General appearance: Present: mild distress - EENT Eyes: Present: PERRL ENT: hearing intact, clear oral mucosa - Neck Neck: Present: supple, normal ROM - Respiratory Respiratory: bilateral: diminished - Cardiovascular Heart Sounds: Present: S1 & S2. Absent: rub, click - Extremities Extremities: pulses symmetrical, No edema Peripheral Pulses: within normal limits - Abdominal General gastrointestinal: Present: soft, non-tender, non-distended, normal bowel sounds Male genitourinary: Present: deferred - Rectal Rectal Exam: deferred - Integumentary Integumentary: Present: clear, warm, dry - Musculoskeletal Musculoskeletal: gait normal, strength equal bilaterally - Psychiatric Psychiatric: appropriate mood/affect, intact judgment & insight - Neurologic Neurologic: CNII-XII intact, moves all extremities Results - Labs CBC & Chem 7: 12/06/16 05:34 12/06/16 05:34 Labs: Abnormal lab results 12/08/16 Range/Units 05:51 Total Creatine Kinase 257 H (55-170) units/L Assessment and Plan - Patient Problems (1) Pulmonary embolism Current Visit: Yes Status: Acute Qualifiers: Pulmonary embolism type: P Chronicity: C Acute cor pulmonale presence: A Plan to address problem: see notes (2) DVT (deep venous thrombosis) Current Visit: Yes Status: Acute Qualifiers: DVT location: D Affected thrombotic vein of extremity: A Chronicity: C Laterality: L Plan to address problem: This is recurrent, see w/up., see notes
--- NOTE | 2016-12-09 07:55 | XRay Report ---
Single view abdomen: History: To evaluate position of IV filter. Findings: Stable vascular stent. IVC filter is at L3 vertebral body. No bowel distention. Impression: IVC filter at L3 vertebral body.
[2016-12-09] MEDS: MORPHINE IV PRN ×2 (08:46→14:42)
[2016-12-09] MEDS: ELIQUIS PO SCH ×2 (10:06→21:28)
--- NOTE | 2016-12-09 10:46 | Progress Note ---
Assessment and Plan Assessment and plan: 40 yo AAM with HIV, previous PE/DVT lower extremities s/p IVC filter placement. He was switched to Eliquis by his ID physician, Dr. Flores at [place], presented for chest pain and bilateral leg cramps 1. Pulmonary embolism - CTA chest revealed PE and Doppler LE showed bilateral acute DVTs. Patient states he was compliant with his medications. Continue Eliquis. Consulted hematology tongue and groove machine setter since patient has pulmonary embolism and DVT while on Eliquis. She is evaluated by Dr. Tillman and he recommends Vascular surgery consult 2. Bilateral LE DVT - Continue Eliquis. History of IVC filter. 3. Acute nontraumatic rhabdomyolysis - IV fluids. Resolving. 4. HIV - not on HAART. Follows with ID physician 5. DVT prophylaxis. On Eliquis. History Interval history: Less having chest pain, Still having bilateral leg pains Hospitalist Physical - Physical exam Narrative exam: Gen appearance: Not in acute distress HEENT: normocephalic, atraumatic Neck: supple, no JVD, PAYAL Lungs: Clear to auscultation bilaterally, no crackles or wheezes Heart :S1 and S2 regular, no murmurs, rubs or gallop Abdomen: Soft, Non tender, non distended, bowel sounds present Extremities :no edema, no clubbing or cyanosis Neuro: AAO x 3, no focal neurological signs Psych:normal mood - Constitutional Vitals: Temp Pulse Resp BP Pulse Ox 97.8 F 67 15 111/69 100 12/09/16 07:35 12/09/16 07:35 12/09/16 07:35 12/09/16 07:35 12/09/16 07:35 General appearance: Present: no acute distress, cachectic Results - Labs CBC & Chem 7: 12/06/16 05:34 12/06/16 05:34 Labs: Laboratory Last Values WBC 4.2 K/mm3 (4.5-11.0) L 12/06/16 05:34 RBC 5.50 M/mm3 (3.65-5.03) H 12/06/16 05:34 Hgb 15.1 gm/dl (11.8-15.2) 12/06/16 05:34 Hct 48.3 % (35.5-45.6) H 12/06/16 05:34 MCV 88 fl (84-94) 12/06/16 05:34 MCH 28 pg (28-32) 12/06/16 05:34 MCHC 31 % (32-34) L 12/06/16 05:34 RDW 15.9 % (13.2-15.2) H 12/06/16 05:34 Plt Count 185 K/mm3 (140-440) 12/06/16 05:34 Lymph % (Auto) 52.5 % (13.4-35.0) H 12/06/16 05:34 [place] % (Auto) 8.8 % (0.0-7.3) H 12/06/16 05:34 Eos % (Auto) 2.0 % (0.0-4.3) 12/06/16 05:34 Baso % (Auto) 0.6 % (0.0-1.8) 12/06/16 05:34 Lymph # 2.2 K/mm3 (1.2-5.4) 12/06/16 05:34 [place] # 0.4 K/mm3 (0.0-0.8) 12/06/16 05:34 Eos # 0.1 K/mm3 (0.0-0.4) 12/06/16 05:34 Baso # 0.0 K/mm3 (0.0-0.1) 12/06/16 05:34 Seg Neutrophils % 36.1 % (40.0-70.0) L 12/06/16 05:34 Seg Neutrophils # 1.5 K/mm3 (1.8-7.7) L 12/06/16 05:34 ESR 1 mm/Hr (0-20) 12/08/16 22:11 PT 13.5 Sec. (12.2-14.9) 12/05/16 03:39 INR 0.98 (0.87-1.13) 12/05/16 03:39 APTT 31.0 Sec. (24.2-36.6) 12/05/16 03:39 D-Dimer 215.78 ng/mlDDU (0-234) 12/05/16 03:39 Sodium 136 mmol/L (137-145) L 12/06/16 05:34 Potassium 3.6 mmol/L (3.6-5.0) 12/06/16 05:34 Chloride 96.8 mmol/L (98-107) L 12/06/16 05:34 Carbon Dioxide 27 mmol/L (22-30) 12/06/16 05:34 Anion Gap 16 mmol/L 12/06/16 05:34 BUN 13 mg/dL (9-20) 12/06/16 05:34 Creatinine 0.8 mg/dL (0.8-1.5) 12/06/16 05:34 Estimated GFR > 60 ml/min 12/06/16 05:34 BUN/Creatinine Ratio 16.25 % 12/06/16 05:34 Glucose 95 mg/dL (75-100) 12/06/16 05:34 Calcium 8.9 mg/dL (8.4-10.2) D 12/06/16 05:34 Magnesium 2.00 mg/dL (1.7-2.3) 12/05/16 03:39 Total Creatine Kinase 257 units/L (55-170) H 12/08/16 05:51 CK-MB (CK-2) 3.8 ng/mL (0.0-4.0) 12/05/16 03:39 CK-MB (CK-2) Rel Index 0.3 (0-4) 12/05/16 03:39 Troponin T < 0.010 ng/mL (0.00-0.029) 12/05/16 09:58 C-Reactive Protein 1.00 mg/dL (0.00-1.30) 12/08/16 22:10
[2016-12-09] MEDS: BENADRYL IV PRN (14:51)
--- NOTE | 2016-12-09 18:41 | Consultation ---
History of Present Illness - Reason for Consult Consult date: 12/09/16 - History of Present Illness This pt is a 40 yo AAM who was admitted on 12/05/16 due to CP and bilat lower ext discomfort. He has a very complicated history. He is a relatively poor historian. Much of the information was taken from this medical record. In 2014 he apparently had lower ext dvt's with Pulmonary embolus. He reportedly had an open embolectomy of his PE as well as bilat lower ext Ileofemoral venous stenting and an IVC filter placement. He required a prolonged hospitalization (~ 1yr) and at one point was transferred to [place] for the procedures. He was initially treated with Xarelto and subsequently converted to Eliquis (He was unsure why they changed). He presently gets most of his care through [facility]. CT scan of the chest shows right lower lobe pulmonary embolus. A venous duplex showed an acute non-occlusive dvt of the right distal SFV/Pop veins, and left pop vein. A Vascular surgery consult is requested to eval for DVT/PE with pt who is anticoagulated and s/p IVC filter placement. Past History Past Medical History: DVT, HIV/AIDS, pulmonary embolism Past Surgical History: Other (Bilateral ileofem stent placement, IVC filter placement, and open thoracic surgery to remove clots ) Social history: single, Lives alone. denies: smoking, alcohol abuse Family history: CAD, hypertension, other (DVT in the sister.) Medications and Allergies Allergies Allergy/AdvReac Type Severity Reaction Status Date / Time ibuprofen [From Motrin] Allergy Hives Verified 12/05/16 03:34 Home Medications Medication Instructions Recorded Confirmed Last Taken Type Apixaban [Eliquis] 5 mg PO BID 12/05/16 12/05/16 Unknown History Furosemide [Lasix TAB] 10 mg PO QDAY 12/05/16 12/05/16 Unknown History Oxycodone HCl [Roxicodone TAB] 15 mg PO Q6H PRN 12/05/16 12/05/16 Unknown History Torsemide [Demadex] 10 mg PO QDAY 12/05/16 12/05/16 Unknown History Active Meds: Active Medications Acetaminophen (Tylenol) 650 mg PO Q4H PRN PRN Reason: Pain MILD(1-3)/Fever >100.5/GROSSMAN Apixaban (Eliquis) 10 mg PO Q12HR SAPNA PRN Reason: Protocol Last Admin: 12/09/16 10:06 Dose: 10 mg Bisacodyl (Dulcolax) 10 mg [place] QDAY PRN PRN Reason: Constipation unrelieved by MOM Diphenhydramine HCl (Benadryl) 25 mg IV Q6H PRN PRN Reason: Itching Last Admin: 12/09/16 14:51 Dose: 25 mg Morphine Sulfate (Morphine) 1 mg IV Q4H PRN PRN Reason: Pain, Moderate (4-6) Last Admin: 12/09/16 14:42 Dose: 1 mg Ondansetron HCl (Zofran) 4 mg IM Q4H PRN PRN Reason: Nausea And Vomiting Review of Systems All systems: negative Exam - Constitutional Vitals: Temp Pulse Resp BP Pulse Ox 98.4 F 74 15 116/78 100 12/09/16 13:15 12/09/16 13:15 12/09/16 13:15 12/09/16 13:15 12/09/16 07:35 General appearance: Present: no acute distress - EENT Eyes: Present: EOM intact ENT: hearing intact - Neck Neck: Present: supple - Respiratory Respiratory effort: normal (unlabored at rest on RA.) - Extremities Extremities: no ischemia, No edema, normal temperature - Psychiatric Psychiatric: appropriate mood/affect, cooperative - Neurologic Neurologic: no focal deficits Results - Labs CBC & Chem 7: 12/06/16 05:34 12/06/16 05:34 Assessment and Plan This pt was admited with CP and bilat lower ext discomfort. CT scan showed a Right sided PE, and the Venous duplex shows bilat non- occlusive dvt's. It is unclear the chronicity of these findings. They certainly could represent the etiology of his discomfort. He is currently on anticoagulation and is s/p an IVC filter placement (filters are not designed to prevent all emboli, but to prevent large potentially fatal PE's). His lower ext swelling is minimal if any, and he does not appear to require thrombolysis for his PE (based upon his symptoms). No vascular surgery intervention recommended at this time. If you are concerned about treatment failure of anticoagulation, you could consider alternate medications. However, given his complicated history,previous medication adjust (for unclear reasons), and unclear chronicity of these thrombotic events, I would recommend discussing any changes with his primary team of clinicians before implementing the changes. - Patient Problems (1) Pulmonary embolism Current Visit: Yes Status: Acute Qualifiers: Pulmonary embolism type: P Chronicity: C Acute cor pulmonale presence: A
--- NOTE | 2016-12-09 21:10 | Consultation ---
History of Present Illness - Reason for Consult Consult date: 12/09/16 - History of Present Illness patient seen/today, resting in bed, labs reviewed.notes from vascular reviewed. Past History Past Medical History: DVT, HIV/AIDS, pulmonary embolism Past Surgical History: Other (Bilateral iliac IVC filter placement and open thoracic surgery to remove clots ) Social history: single, Lives alone. denies: smoking, alcohol abuse Family history: CAD, hypertension, other (DVT in the sister.) Medications and Allergies Allergies Allergy/AdvReac Type Severity Reaction Status Date / Time ibuprofen [From Motrin] Allergy Hives Verified 12/05/16 03:34 Home Medications Medication Instructions Recorded Confirmed Last Taken Type Apixaban [Eliquis] 5 mg PO BID 12/05/16 12/05/16 Unknown History Furosemide [Lasix] 10 mg PO QDAY 12/05/16 12/05/16 Unknown History Oxycodone HCl [Roxicodone TAB] 15 mg PO Q6H PRN 12/05/16 12/05/16 Unknown History Torsemide [Demadex] 10 mg PO QDAY 12/05/16 12/05/16 Unknown History Active Meds: Active Medications Acetaminophen (Tylenol) 650 mg PO Q4H PRN PRN Reason: Pain MILD(1-3)/Fever >100.5/GROSSMAN Apixaban (Eliquis) 10 mg PO Q12HR SAPNA PRN Reason: Protocol Last Admin: 12/09/16 10:06 Dose: 10 mg Bisacodyl (Dulcolax) 10 mg ID QDAY PRN PRN Reason: Constipation unrelieved by MOM Diphenhydramine HCl (Benadryl) 25 mg IV Q6H PRN PRN Reason: Itching Last Admin: 12/09/16 14:51 Dose: 25 mg Morphine Sulfate (Morphine) 1 mg IV Q4H PRN PRN Reason: Pain, Moderate (4-6) Last Admin: 12/09/16 14:42 Dose: 1 mg Ondansetron HCl (Zofran) 4 mg IM Q4H PRN PRN Reason: Nausea And Vomiting Exam - Constitutional Vitals: Temp Pulse Resp BP Pulse Ox 98.4 F 77 16 122/73 98 12/09/16 15:45 12/09/16 15:45 12/09/16 15:45 12/09/16 15:45 12/09/16 15:45 General appearance: Present: no acute distress, well-nourished - EENT Eyes: Present: PERRL ENT: hearing intact, clear oral mucosa - Neck Neck: Present: supple, normal ROM - Respiratory Respiratory effort: normal Respiratory: bilateral: CTA - Cardiovascular Heart Sounds: Present: S1 & S2. Absent: rub, click - Extremities Extremities: pulses symmetrical, No edema Peripheral Pulses: within normal limits - Abdominal General gastrointestinal: Present: soft, non-tender, non-distended, normal bowel sounds Male genitourinary: Present: normal - Integumentary Integumentary: Present: clear, warm, dry - Musculoskeletal Musculoskeletal: gait normal, strength equal bilaterally - Psychiatric Psychiatric: appropriate mood/affect, intact judgment & insight - Neurologic Neurologic: CNII-XII intact, moves all extremities Results - Labs CBC & Chem 7: 12/06/16 05:34 12/06/16 05:34 Assessment and Plan - Patient Problems (1) Pulmonary embolism Current Visit: Yes Status: Acute Qualifiers: Pulmonary embolism type: P Chronicity: C Acute cor pulmonale presence: A Plan to address problem: see notes (2) DVT (deep venous thrombosis) Current Visit: Yes Status: Acute Qualifiers: DVT location: D Affected thrombotic vein of extremity: A Chronicity: C Laterality: L Plan to address problem: This is recurrent, see w/up., see notes
[2016-12-10 06:00] VITALS: BP 108/64
[2016-12-10] MEDS: ELIQUIS PO SCH (09:29)
[2016-12-10] MEDS: BENADRYL IV PRN (09:30)
[2016-12-10] MEDS: MORPHINE IV PRN (09:30)
[2016-12-10] MEDS ORDERED: PERCOCET 5/325 PO PRN (09:32)
--- NOTE | 2016-12-10 10:47 | Discharge Summary ---
Providers - Providers Date of Admission: 12/05/16 08:46 Date of discharge: 12/10/16 Attending physician: JONG GAN 12/08/16 13:21 Consult to Physician [CONS] Routine Consulting Provider: LAILA HAQ Reason For Exam: pulm embolism, DVt on Eliquis Place consult to:: dr. 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 Place consult to:: vascular jim. Notified:: BLAKE Phone number called:: IN HOUSE Was contact made?: Yes If yes, spoke with:: DIANE Time called:: 09:04 Comment:: [place] NOTIFIED Primary care physician: INSTRUMENT CHECKER Hospitalization Condition: Good Hospital course: Patient is 40 yo with history of HIV, DVT and pulmonary embolism s/p surgical thrombectomy, on Eliquis . He presented with right sided chest pain and bilateral leg pains. CT chest revealed pulmonary embolism right lower lobe and dopplers showed DVT both lower extremities. He was started on Anticoagulation and Pediatric Nurse Practitioner and Vascular surgeon were consulted. He was evaluated , radiology confirmed IVC filter in place. He felt better over few days and was discharged home to continue Eliquis and follow up as outpatient. Total time spent on discharge, 35 mins Disposition: DC TO HOME OR SELFCARE - Discharge Diagnoses (1) Pulmonary embolus, right Status: Acute (2) HIV (human immunodeficiency virus infection) Status: Acute (3) DVT (deep venous thrombosis) Status: Acute Qualifiers: DVT location: lower extremity Affected thrombotic vein of extremity: A Chronicity: acute Laterality: bilateral (4) Hyponatremia Status: Acute (5) Rhabdomyolysis Status: Acute Qualifiers: Rhabdomyolysis type: R Encounter type: E Core Measure Documentation - Palliative Care Palliative Care/ Comfort Measures: Not Applicable - Core Measures Any of the following diagnoses?: DVT/PE - VTE Discharge Requirements Deep Vein Thrombosis/Pulmonary Embolism Present on Admission: Yes Has pt received <5 days of overlap therapy or INR<2.0: Yes Anticoagulant overlap therapy prescribed at discharge: No Contraindication No Overlap Therapy order at DC: Not Indicated (On Eliquis) Exam - Constitutional Vitals: Temp Pulse Resp BP Pulse Ox 98.0 F 69 18 108/64 97 12/10/16 04:30 12/10/16 04:30 12/10/16 04:30 12/10/16 04:30 12/10/16 04:30 Plan Diet: regular Additional Instructions: 1.No strenous activivty until cleared by PCP. 2.Follow up with Dr. Flores, PCP in 1 week. 3.Follow up with Dr. Haq, Pediatric Nurse Practitioner in 1 week Follow up with: PRIMARY CAREMD [Primary Care Provider] - 3-5 Days
[2016-12-11 12:28] LABS: Protein S, Free 81 % normal (57-171); Protein S, Total 94 % (70-140)
== END 2016-12-10 18:18 | disposition home or self-care (01) | DRG 175 ==
LOC: ED 03:09 → 3A 08:46
PROVIDERS: ADMIT Internal Medicine; ATTEND Internal Medicine
DX: I26.99 Other pulmonary embolism without acute cor pulmonale (principal); B20 Human immunodeficiency virus [HIV] disease; E86.0 Dehydration; I27.2 Other secondary pulmonary hypertension; M62.82 Rhabdomyolysis; Z60.2 Problems related to living alone; R64 Cachexia; Z68.20 Body mass index [BMI] 20.0-20.9, adult; Z88.8 Allergy status to other drugs, medicaments and biological substances; Z82.49 Family history of ischemic heart disease and other diseases of the circulatory system; Z87.891 Personal history of nicotine dependence; Z91.19 Patient's noncompliance with other medical treatment and regimen; Z86.718 Personal history of other venous thrombosis and embolism; I82.403 Acute embolism and thrombosis of unspecified deep veins of lower extremity, bilateral
CPT/HCPCS: 36415; 71010; 71275; 74000; 80048; 82550; 82553; 83516; 83735; 84484; 85025; 85220; 85301; 85305; 85307; 85379; 85610; 85652; 85730; 86140; 90686; 90732; 93005; 93010; 93306; 93970; 96361; 96374; 96375; J1170; J1200; J1885; J2270; J2405; J7030; Q9967